=== PATIENT | male | born 1980 | race Two or more races ===

== ENCOUNTER 2017-02-07 11:29 | Outpatient (CLI) | payer BC ==
[~2017-02-07 11:29] MED LIST: HYDR-3965 PO
[2017-02-07 11:31] VITALS: BP 129/77
== END 2017-02-07 12:30 | disposition home or self-care (01) ==
LOC: ORTHO 11:29
PROVIDERS: ATTEND Nurse Practitioner Family
DX: S43.004A Unspecified dislocation of right shoulder joint, initial encounter (principal); W18.39XA Other fall on same level, initial encounter; Y93.89 Activity, other specified
CPT/HCPCS: 99211